=== PATIENT | male | born 1970 | race Caucasian/White ===

== ENCOUNTER 2023-06-02 11:26 | Emergency (ER) | payer OTHER ==
[~2023-06-02] VITALS: Ht 177.8 cm; Wt 103.0 kg
[2023-06-02] MEDS ORDERED: HYDROCODON-ACE1 EA11 PO (12:03)
[2023-06-02] MEDS ORDERED: MOUNJARO7.5 MG/0.5 (12:04)
[2023-06-02] MEDS ORDERED: TIZANIDINE HCL4 M1 PO (12:05)
[2023-06-02] MEDS ORDERED: TRAZODONE HCL50 MG PO (12:05)
[2023-06-02] MEDS ORDERED: CYMBALTA60 MG PO (12:06)
[2023-06-02] MEDS ORDERED: TESTOSTERONE100 MG (12:07)
[2023-06-02] MEDS ORDERED: SILDENAFIL CITR25 MG PO (12:08)
[2023-06-02] MEDS ORDERED: PERCOCET 5-3251 EACH PO (13:23)
[2023-06-02] MEDS ORDERED: METHYLPREDNISOLO4 M1 PO (13:25)
[2023-06-02 13:35] VITALS: BP 103/79
== END 2023-06-02 13:35 | disposition home or self-care (01) ==
LOC: ED 11:26
DX: M51.37 Other intervertebral disc degeneration, lumbosacral region (principal); E11.9 Type 2 diabetes mellitus without complications; Z79.899 Other long term (current) drug therapy; Z79.890 Hormone replacement therapy
CPT/HCPCS: 72100; J1100; J1170